=== PATIENT | male | born 1990 | race Caucasian/White ===

== ENCOUNTER 2020-11-25 12:21 | Outpatient (CLI) | payer BC ==
[~2020-11-25 12:21] MED LIST: Magnevist 469MG/ML 20 ML VIAL ONE
== END 2020-11-25 12:22 | disposition home or self-care (01) ==
LOC: BICMRI 12:21
PROVIDERS: ATTEND Nurse Practitioner Acute Care
DX: G43.009 Migraine without aura, not intractable, without status migrainosus (principal)
CPT/HCPCS: 70553; A9579